=== PATIENT | male | born 1955 | race Caucasian/White ===

== ENCOUNTER 2019-01-17 18:54 | Outpatient (CLI) | payer OTHER | END 2019-01-17 18:55 | disposition EMS.NT | LOC: EMS 18:54 | PROVIDERS: ATTEND Surgery | DX: R04.0 Epistaxis (principal) ==

== ENCOUNTER 2019-01-17 20:09 | Emergency (ER) | payer OTHER ==
[2019-01-17] MEDS ORDERED: TRANEXAMIC ACID 1,000 MG/10 ML VIAL NAS STA (20:43)
[2019-01-17] MEDS ORDERED: OXYMETAZOLINE NASAL SPRAY NAS STA (20:47)
--- NOTE | 2019-01-17 20:48 | ED Physician Documentation ---
PD HPI HEENT - Stated complaint Stated Complaint: NOSE BLEED - Chief complaint Chief Complaint: Heent - History obtained from History obtained from: Patient, Family - History of Present Illness Timing - onset: Today Timing - duration: Hours Timing - details: Abrupt onset, Still present Location: Nose Improves: Other (clamping) Associated symptoms: No: Fever, Congestion, Rhinorrhea, Trismus, Swollen nodes, Facial swelling, Headache, Cough Similar symptoms before: Diagnosis (epistaxis) Recently seen: Clinic - Additional information Additional information: 63-year-old male has had a series of nosebleeds over the past 2 months and he has been into see his primary care physician who has recommended cautery. Review of Systems Constitutional: denies: Fever Eyes: denies: Decreased vision Ears: denies: Ear pain Nose: reports: Epistaxis. denies: Rhinorrhea / runny nose Throat: denies: Sore throat Respiratory: denies: Cough GI: denies: Vomiting PD PAST MEDICAL HISTORY - Past Medical History Past Medical History: Yes Cardiovascular: Hypertension, High cholesterol - Past Surgical History Past Surgical History: Yes Ortho: Other Cardiovascular: Valve replacement - Present Medications Home Medications: Ambulatory Orders Medication Instructions Recorded Confirmed Aspirin [Children's Aspirin] 1 tab PO DAILY 01/17/19 01/17/19 Atorvastatin Calcium 1 tab PO DAILY 01/17/19 01/17/19 Metoprolol Succinate [Toprol Xl] 1 tab PO DAILY 01/17/19 01/17/19 hydroCHLOROthiazide [Hydrodiuril] 1 tab PO DAILY 01/17/19 01/17/19 - Allergies Allergies/Adverse Reactions: Allergies Allergy/AdvReac Type Severity Reaction Status Date / Time No Known Drug Allergies Allergy Verified 01/17/19 20:22 - Social History Does the pt smoke?: No Smoking Status: Never smoker Does the pt drink ETOH?: Yes ETOH Use: Wine Does the pt have substance abuse?: No - Immunizations Immunizations are current?: Yes - POLST Patient has POLST: No PD ED PE NORMAL - Vitals Vital signs reviewed: Yes (hypertensive mild ) - General General: Alert and oriented X 3, No acute distress, Well developed/nourished - HEENT HEENT: Atraumatic, PERRL, EOMI, Other (There is evidence of recent bleeding from the left nares anteriorly on the septum) - Neck Neck: Supple, no meningeal sign - Respiratory Respiratory: No respiratory distress - Derm Derm: Normal color, Warm and dry, No rash - Extremities Extremities: No deformity, No edema - Neuro Neuro: Alert and oriented X 3, 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, No motor deficit, No sensory deficit, Normal speech Eye Opening: Spontaneous Motor: Obeys Commands Verbal: Oriented GCS Score: 15 - Psych Psych: Normal mood, Normal affect Results - Vitals Vitals: Vital Signs - 24 hr 01/17/19 20:19 Temperature 36.4 C L Heart Rate 92 Respiratory 16 Rate Blood Pressure 146/85 H O2 Saturation 98 Oxygen O2 Source Room air Procedures - Epistaxis Site: Left, Anterior Preparation: Afrin, Clamp / pressure applied, Other (tranexemic acid topically 400mg) Treatment: Silver Nitrate Other: Observed - no bleeding, Pt tolerated well PD MEDICAL DECISION MAKING - ED course Complexity details: considered differential, d/w patient, d/w family ED course: 63-year-old male with recurrent nosebleeds has an area in the left anterior septum with a focus of bleeding and this is clearly visible after treatment with Afrin and tranexamic acid. He responds well to the silver nitrate cautery. Departure - Departure Disposition: 01 Home, Self Care Clinical Impression: Epistaxis Condition: Stable Instructions: ED Nosebleed Follow-Up: Lavelle Macario DO [Primary Care Provider] -
[2019-01-17 21:48] VITALS: BP 177/99
== END 2019-01-17 21:35 | disposition home or self-care (01) ==
LOC: ED 20:09
DX: R04.0 Epistaxis (principal); I10 Essential (primary) hypertension; Z95.2 Presence of prosthetic heart valve; Z79.82 Long term (current) use of aspirin
CPT/HCPCS: 30901; 99283; A9270